=== PATIENT | female | born 1940 | race Two or more races ===

== ENCOUNTER 2023-06-09 15:35 | Inpatient (IN) | payer OTHER ==
[~2023-06-09] VITALS: Ht 162.6 cm; Wt 103.4 kg
[2023-06-09 16:00] VITALS: PULSE 55; RESP 15; O2SAT 96
[2023-06-09 16:28] LABS: Basophils # (auto) 0 10 ^3/uL (0-0.2); Basophils % (auto) 0.1 % (0.0-2.0); Eosinophils # (auto) 0 10 ^3/uL (0-0.8); Eosinophils % (auto) 0.2 % (0.0-7.0); Hematocrit 43.5 % (36.0-46.0); Hemoglobin 13.8 g/dL (12.2-16.2); Lymphocytes # (auto) 0.6 10 ^3/uL (0.4-5.4); Lymphocytes % (auto) 16.3 % (10.0-50.0); Mean Corpuscular Hgb Conc. 31.6 g/dL (32.0-36.0); Mean Corpuscular Volume 94.7 fL (80.0-100.0); Monocytes # (auto) 0.4 10 ^3/uL (0-1.3); Monocytes % (auto) 11.1 % (0.0-12.0); Neutrophils # (auto) 2.5 10 ^3/uL (1.6-8.6); Neutrophils % (auto) 72.3 % (37.0-80.0); Nucleated Red Blood Cells % 0.1 %; Red Blood Cells 4.59 10^6/uL (4.0-5.20); White Blood Cell 3.4 10^3/uL (4.4-10.8)
[2023-06-09] MEDS ORDERED: FUROSEMIDE 40 MG/4 ML VIAL IV ONE (16:30)
[2023-06-09 16:45] LABS: Alanine Aminotransferase 12 U/L (7-40); Albumin 3.4 g/dL (3.2-4.8); Alkaline Phosphatase 131 U/L (46-116); Anion Gap 5 (5-15); Aspartate Aminotransferase 44 U/L (13-40); BUN/Creatinine Ratio 9.3 (10.0-20.0); Blood Urea Nitrogen 13 mg/dL (9-23); Carbon Dioxide 31 mmol/L (20-30); Chloride 100 mmol/L (98-107); Glucose 148 mg/dL (74-106); Potassium 4.2 mmol/L (3.5-5.1); Sodium 136 mmol/L (136-145); Total Protein 7.1 g/dL (5.7-8.2)
[2023-06-09] MEDS ORDERED: AZITHROMYCIN 500MG/ 250ML 250 ML IV ONE (17:30)
[2023-06-09 18:50] LABS: Urine Bacteria NONE SEEN /hpf (None Seen); Urine Blood Negative /uL (Negative); Urine Clarity Clear (Clear); Urine Color Yellow (Yellow); Urine Hyaline Cast FEW /lpf (0 - 2); Urine Protein, UAD 1+ (Negative); Urine Specific Gravity 1.013 (1.001-1.035); Urine Urobilinogen Normal (Negative); Urine WBC 1 /hpf (0 - 5)
[2023-06-09 20:00] VITALS: PULSE 59; RESP 14; O2SAT 92
[2023-06-09] MEDS ORDERED: ALBUTEROL SULF 2.5 MG/0.5ML(0.5%) NEB SOLN NEB PRN (20:45)
[2023-06-09] MEDS ORDERED: DEXTROSE (50%) 50ML SYRG IV PRN (20:45)
[2023-06-09] MEDS ORDERED: NITROGLYCERIN 0.4 MG SL TAB SL PRN (20:45)
[2023-06-09] MEDS ORDERED: ACETAMINOPHEN 325 MG TAB PO PRN (20:45)
[2023-06-09] MEDS ORDERED: MORPHINE SULFATE INJ 2 MG/ml SYRG IV PRN (20:45)
[2023-06-09 21:13] LABS: COVID19 ANTIGEN SOFIA FIA POSITIVE (NEGATIVE)
[2023-06-09 21:45] LABS: Rapid Influenza A Negative (Negative); Rapid Influenza B Negative (Negative)
[2023-06-09] MEDS ORDERED: METOPROLOL TARTRATE 25 MG TAB PO SCH (22:00)
[2023-06-09] MEDS ORDERED: AMIODARONE HCL 200 MG TAB PO SCH (22:00)
[2023-06-09] MEDS: InsuLIN REG 1unit/0.01ml Soln (100units/ml) SC SCH (22:00)
[2023-06-09] MEDS ORDERED: ALBUTEROL SULF HFA 90MCG INH 200DOSE IN PRN (22:15)
[2023-06-09 22:22] VITALS: BP 111/84; PULSE 56; RESP 18; TEMP 98.6; O2SAT 96
[2023-06-09] MEDS: ATORVASTATIN 20 MG TAB PO SCH (22:27)
[2023-06-09] MEDS: ACCU-CHEK COMFORT CURVE STRIP VI SCH (22:29)
[2023-06-10] VITALS (11 sets, daily range): BP systolic 109–128; BP diastolic 62–84; PULSE 51–61; RESP 16–21; TEMP 97.3–98.4; O2SAT 90–96
[2023-06-10] MEDS ORDERED: REMDESIVIR PER PHARMACY 0 ML IV SCH (06:30)
[2023-06-10 06:57] LABS: Alanine Aminotransferase 13 U/L (7-40); Albumin 3.2 g/dL (3.2-4.8); Alkaline Phosphatase 120 U/L (46-116); Anion Gap 10 (5-15); Aspartate Aminotransferase 45 U/L (13-40); Bilirubin, Total 1.1 mg/dL (0.2-1.0); Blood Urea Nitrogen 10 mg/dL (9-23); Calcium 8.1 mg/dL (8.5-10.1); Carbon Dioxide 25 mmol/L (20-30); Chloride 100 mmol/L (98-107); Glucose 99 mg/dL (74-106); Potassium 3.5 mmol/L (3.5-5.1); Sodium 135 mmol/L (136-145)
[2023-06-10 06:58] LABS: Total Protein 6.8 g/dL (5.7-8.2)
[2023-06-10 07:00] LABS: Basophils # (auto) 0 10 ^3/uL (0-0.2); Basophils % (auto) 0.2 % (0.0-2.0); Eosinophils # (auto) 0 10 ^3/uL (0-0.8); Eosinophils % (auto) 0.1 % (0.0-7.0); Hemoglobin 14.3 g/dL (12.2-16.2); Lymphocytes # (auto) 0.6 10 ^3/uL (0.4-5.4); Lymphocytes % (auto) 15.4 % (10.0-50.0); Mean Corpuscular Hemoglobin 30.9 pg (28.0-32.0); Mean Corpuscular Hgb Conc. 32.6 g/dL (32.0-36.0); Mean Corpuscular Volume 94.9 fL (80.0-100.0); Monocytes # (auto) 0.5 10 ^3/uL (0-1.3); Monocytes % (auto) 11.5 % (0.0-12.0); Neutrophils % (auto) 72.8 % (37.0-80.0); Nucleated Red Blood Cells % 0.1 %; Red Blood Cells 4.64 10^6/uL (4.0-5.20); Red Cell Distribution Width 17.1 % (11.8-14.3); White Blood Cell 4.1 10^3/uL (4.4-10.8)
[2023-06-10] MEDS: InsuLIN REG 1unit/0.01ml Soln (100units/ml) SC SCH ×4 (07:00→22:49)
[2023-06-10 07:21] LABS: CRP High Sensitivity 4.92 mg/dL (<1.0)
[2023-06-10] MEDS: FUROSEMIDE 20 MG/2 ML VIAL IV SCH ×2 (07:28→17:21)
[2023-06-10] MEDS: cefTRIAXone 1GM/50ML D5W 50 ML IV SCH ×2 (07:30→10:31)
[2023-06-10] MEDS ORDERED: DEXTROSE (50%) 50ML SYRG IV PRN (07:30)
[2023-06-10] MEDS: ACCU-CHEK COMFORT CURVE STRIP VI SCH ×4 (07:31→22:48)
[2023-06-10 07:35] LABS: Magnesium 1.9 mg/dL (1.6-2.6)
[2023-06-10] MEDS ORDERED: ASPirin 81 mg TAB PO SCH (10:00)
[2023-06-10] MEDS ORDERED: ENOXAPARIN SOD 30 MG/0.3 ML SYRINGE SC SCH (10:00)
[2023-06-10] MEDS ORDERED: CLOPIDOGREL BISULFATE 75 MG TAB PO SCH (10:00)
[2023-06-10] MEDS ORDERED: LISINOPRIL 10 MG TAB PO SCH (10:00)
[2023-06-10] MEDS: DexAMETHasone SOD PHOS 10MG/1ML VIAL INJ IV SCH (10:30)
[2023-06-10] MEDS: CHOLECALCIFEROL (VITD3) 2,000 UNIT CAP/TAB PO SCH (10:30)
[2023-06-10] MEDS: ZINC SULFATE 220mg CAP or TAB PO SCH (10:31)
[2023-06-10] MEDS: ASCORBIC ACID 1,000 MG TAB PO SCH (10:31)
[2023-06-10] MEDS: ALBUTEROL SULF HFA 90MCG INH 200DOSE IN PRN (11:11)
[2023-06-10] MEDS ORDERED: CYANOCOBALAMIN 500 MCG TAB PO ONE (12:00)
[2023-06-10] MEDS ORDERED: REMDESIVIR 200 MG in NS 210ml LOADING DOSE ADULT IV ONE (12:00)
[2023-06-10] MEDS: AZITHROMYCIN 500MG/ 250ML 250 ML IV SCH (12:20)
[2023-06-10 18:52] LABS: Base Excess 5.6 mmol/L (-2.0-2.0)
[2023-06-10] MEDS: ATORVASTATIN 20 MG TAB PO SCH (22:48)
[2023-06-10] MEDS: ENOXAPARIN SOD 100 MG/1 ML SYRINGE SC SCH (22:49)
[2023-06-11] VITALS (8 sets, daily range): BP systolic 114–142; BP diastolic 67–85; PULSE 54–87; RESP 16–20; TEMP 96.9–98.6; O2SAT 89–93
[2023-06-11] MEDS: InsuLIN REG 1unit/0.01ml Soln (100units/ml) SC SCH ×4 (06:24→21:34)
[2023-06-11] MEDS: ACCU-CHEK COMFORT CURVE STRIP VI SCH ×4 (06:24→21:24)
[2023-06-11] MEDS: FUROSEMIDE 20 MG/2 ML VIAL IV SCH ×2 (06:26→18:37)
[2023-06-11 06:39] LABS: Basophils # (auto) 0 10 ^3/uL (0-0.2); Basophils % (auto) 0.2 % (0.0-2.0); Eosinophils # (auto) 0 10 ^3/uL (0-0.8); Hematocrit 44.9 % (36.0-46.0); Hemoglobin 14.7 g/dL (12.2-16.2); Lymphocytes # (auto) 0.5 10 ^3/uL (0.4-5.4); Lymphocytes % (auto) 18.8 % (10.0-50.0); Mean Corpuscular Hemoglobin 30.6 pg (28.0-32.0); Mean Corpuscular Hgb Conc. 32.6 g/dL (32.0-36.0); Mean Corpuscular Volume 93.8 fL (80.0-100.0); Monocytes # (auto) 0.4 10 ^3/uL (0-1.3); Neutrophils # (auto) 1.9 10 ^3/uL (1.6-8.6); Nucleated Red Blood Cells % 0.2 %; Red Blood Cells 4.79 10^6/uL (4.0-5.20); Red Cell Distribution Width 16.8 % (11.8-14.3); White Blood Cell 2.9 10^3/uL (4.4-10.8)
[2023-06-11 06:53] LABS: Albumin 3.3 g/dL (3.2-4.8); Alkaline Phosphatase 124 U/L (46-116); Anion Gap 7 (5-15); Aspartate Aminotransferase 43 U/L (13-40); BUN/Creatinine Ratio 14.3 (10.0-20.0); Bilirubin, Total 1.2 mg/dL (0.2-1.0); Blood Urea Nitrogen 15 mg/dL (9-23); Calcium 8.3 mg/dL (8.7-10.4); Carbon Dioxide 29 mmol/L (20-30); Chloride 99 mmol/L (98-107); Glucose 128 mg/dL (74-106); Potassium 3.5 mmol/L (3.5-5.1); Sodium 135 mmol/L (136-145); Total Protein 6.9 g/dL (5.7-8.2)
[2023-06-11 06:56] LABS: Alanine Aminotransferase 9 U/L (7-40)
[2023-06-11] MEDS ORDERED: ERGOCALCIFEROL 50,000 UNIT(1.25MG) CAP PO SCH (07:30)
[2023-06-11] MEDS: CLOPIDOGREL BISULFATE 75 MG TAB PO SCH (09:23)
[2023-06-11] MEDS: ZINC SULFATE 220mg CAP or TAB PO SCH (09:23)
[2023-06-11] MEDS: DexAMETHasone SOD PHOS 10MG/1ML VIAL INJ IV SCH (09:24)
[2023-06-11] MEDS: SACUBITRIL-VALSARTAN 24mg/26mg TAB PO SCH ×2 (09:24→21:25)
[2023-06-11] MEDS: ASCORBIC ACID 1,000 MG TAB PO SCH (09:24)
[2023-06-11] MEDS: CHOLECALCIFEROL (VITD3) 2,000 UNIT CAP/TAB PO SCH (09:24)
[2023-06-11] MEDS: cefTRIAXone 1GM/50ML D5W 50 ML IV SCH (09:24)
[2023-06-11] MEDS: CYANOCOBALAMIN 500 MCG TAB PO SCH (09:35)
[2023-06-11] MEDS: ENOXAPARIN SOD 100 MG/1 ML SYRINGE SC SCH ×2 (09:37→21:25)
[2023-06-11] MEDS: AZITHROMYCIN 500MG/ 250ML 250 ML IV SCH (10:00)
[2023-06-11] MEDS ORDERED: CYANOCOBALAMIN 500 MCG TAB PO SCH (10:00)
[2023-06-11] MEDS: ALBUTEROL SULF HFA 90MCG INH 200DOSE IN PRN (13:45)
[2023-06-11] MEDS: REMDESIVIR 100mg 100 MG in SODIUM CHL 0.9% 230 ML IV SCH (16:13)
[2023-06-11] MEDS: ATORVASTATIN 20 MG TAB PO SCH (21:24)
[2023-06-12] VITALS (9 sets, daily range): BP systolic 104–131; BP diastolic 64–82; PULSE 50–57; RESP 15–20; TEMP 96.5–97.5; O2SAT 90–96
[2023-06-12] MEDS: FUROSEMIDE 20 MG/2 ML VIAL IV SCH ×2 (06:50→19:00)
[2023-06-12] MEDS: ACCU-CHEK COMFORT CURVE STRIP VI SCH ×4 (06:50→21:57)
[2023-06-12] MEDS: EMPAGLIFLOZIN 10 MG TAB PO SCH (06:50)
[2023-06-12] MEDS: InsuLIN REG 1unit/0.01ml Soln (100units/ml) SC SCH ×4 (06:51→22:24)
[2023-06-12 06:58] LABS: Basophils # (auto) 0 10 ^3/uL (0-0.2); Basophils % (auto) 0.1 % (0.0-2.0); Eosinophils # (auto) 0 10 ^3/uL (0-0.8); Hematocrit 47.8 % (36.0-46.0); Hemoglobin 15.8 g/dL (12.2-16.2); Lymphocytes # (auto) 0.6 10 ^3/uL (0.4-5.4); Lymphocytes % (auto) 7.9 % (10.0-50.0); Mean Corpuscular Hemoglobin 30.8 pg (28.0-32.0); Mean Corpuscular Volume 93.3 fL (80.0-100.0); Monocytes # (auto) 0.8 10 ^3/uL (0-1.3); Monocytes % (auto) 10.3 % (0.0-12.0); Neutrophils # (auto) 6.5 10 ^3/uL (1.6-8.6); Neutrophils % (auto) 81.7 % (37.0-80.0); Nucleated Red Blood Cells % 0.1 %; Red Blood Cells 5.12 10^6/uL (4.0-5.20); Red Cell Distribution Width 16.9 % (11.8-14.3)
[2023-06-12 07:21] LABS: Alanine Aminotransferase 13 U/L (7-40); Albumin 3.2 g/dL (3.2-4.8); Alkaline Phosphatase 124 U/L (46-116); Anion Gap 11 (5-15); Aspartate Aminotransferase 42 U/L (13-40); BUN/Creatinine Ratio 19.6 (10.0-20.0); Blood Urea Nitrogen 21 mg/dL (9-23); Calcium 8.7 mg/dL (8.5-10.1); Carbon Dioxide 29 mmol/L (20-30); Chloride 97 mmol/L (98-107); Glucose 142 mg/dL (74-106); Potassium 3.3 mmol/L (3.5-5.1); Sodium 137 mmol/L (136-145); Total Protein 6.8 g/dL (5.7-8.2)
[2023-06-12] MEDS: cefTRIAXone 1GM/50ML D5W 50 ML IV SCH (10:19)
[2023-06-12] MEDS: DexAMETHasone SOD PHOS 10MG/1ML VIAL INJ IV SCH (10:19)
[2023-06-12] MEDS: ENOXAPARIN SOD 100 MG/1 ML SYRINGE SC SCH ×2 (10:20→21:57)
[2023-06-12] MEDS: ASCORBIC ACID 1,000 MG TAB PO SCH (10:21)
[2023-06-12] MEDS: ZINC SULFATE 220mg CAP or TAB PO SCH (10:21)
[2023-06-12] MEDS: CYANOCOBALAMIN 500 MCG TAB PO SCH (10:21)
[2023-06-12] MEDS: CLOPIDOGREL BISULFATE 75 MG TAB PO SCH (10:21)
[2023-06-12] MEDS: CHOLECALCIFEROL (VITD3) 2,000 UNIT CAP/TAB PO SCH (10:21)
[2023-06-12] MEDS: SACUBITRIL-VALSARTAN 24mg/26mg TAB PO SCH ×2 (10:21→21:56)
[2023-06-12 12:18] LABS: Base Excess 5.2 mmol/L (-2.0-2.0)
[2023-06-12] MEDS: AZITHROMYCIN 500MG/ 250ML 250 ML IV SCH (12:49)
[2023-06-12] MEDS ORDERED: POTASSIUM EFFERVESENT TAB 25 MEQ PO ONE (13:30)
[2023-06-12] MEDS: REMDESIVIR 100mg 100 MG in SODIUM CHL 0.9% 230 ML IV SCH (16:24)
[2023-06-12] MEDS: ALBUTEROL SULF HFA 90MCG INH 200DOSE IN PRN (17:28)
[2023-06-12] MEDS: ATORVASTATIN 20 MG TAB PO SCH (21:57)
[2023-06-13] VITALS (8 sets, daily range): BP systolic 113–128; BP diastolic 55–77; PULSE 56–118; RESP 17–20; TEMP 96.7–98.6; O2SAT 91–94
[2023-06-13] MEDS: FUROSEMIDE 20 MG/2 ML VIAL IV SCH ×2 (06:00→18:06)
[2023-06-13 06:16] LABS: Basophils # (auto) 0 10 ^3/uL (0-0.2); Basophils % (auto) 0.4 % (0.0-2.0); Eosinophils # (auto) 0 10 ^3/uL (0-0.8); Eosinophils % (auto) 0.1 % (0.0-7.0); Hematocrit 51.2 % (36.0-46.0); Hemoglobin 16.7 g/dL (12.2-16.2); Lymphocytes # (auto) 0.8 10 ^3/uL (0.4-5.4); Lymphocytes % (auto) 9.5 % (10.0-50.0); Mean Corpuscular Hemoglobin 30.4 pg (28.0-32.0); Mean Corpuscular Hgb Conc. 32.6 g/dL (32.0-36.0); Mean Corpuscular Volume 93.3 fL (80.0-100.0); Monocytes # (auto) 1.1 10 ^3/uL (0-1.3); Monocytes % (auto) 12.7 % (0.0-12.0); Neutrophils # (auto) 6.6 10 ^3/uL (1.6-8.6); Neutrophils % (auto) 77.3 % (37.0-80.0); Nucleated Red Blood Cells % 0.5 %; Red Blood Cells 5.49 10^6/uL (4.0-5.20); Red Cell Distribution Width 17.2 % (11.8-14.3); White Blood Cell 8.5 10^3/uL (4.4-10.8)
[2023-06-13] MEDS: ACCU-CHEK COMFORT CURVE STRIP VI SCH ×4 (06:31→21:28)
[2023-06-13] MEDS: EMPAGLIFLOZIN 10 MG TAB PO SCH (06:31)
[2023-06-13] MEDS: InsuLIN REG 1unit/0.01ml Soln (100units/ml) SC SCH ×4 (06:33→23:10)
[2023-06-13 07:12] LABS: Alanine Aminotransferase 16 U/L (7-40); Albumin 3.1 g/dL (3.2-4.8); Alkaline Phosphatase 127 U/L (46-116); Anion Gap 9 (5-15); Aspartate Aminotransferase 49 U/L (13-40); BUN/Creatinine Ratio 15.2 (10.0-20.0); Blood Urea Nitrogen 17 mg/dL (9-23); Calcium 8.3 mg/dL (8.7-10.4); Carbon Dioxide 28 mmol/L (20-30); Chloride 99 mmol/L (98-107); Glucose 167 mg/dL (74-106); Potassium 3.7 mmol/L (3.5-5.1); Sodium 136 mmol/L (136-145); Total Protein 6.9 g/dL (5.7-8.2)
[2023-06-13] MEDS: ALBUTEROL SULF HFA 90MCG INH 200DOSE IN PRN (07:18)
[2023-06-13] MEDS: cefTRIAXone 1GM/50ML D5W 50 ML IV SCH (09:15)
[2023-06-13] MEDS: DexAMETHasone SOD PHOS 10MG/1ML VIAL INJ IV SCH (10:53)
[2023-06-13] MEDS: AZITHROMYCIN 500MG/ 250ML 250 ML IV SCH (10:53)
[2023-06-13] MEDS: ENOXAPARIN SOD 100 MG/1 ML SYRINGE SC SCH ×2 (10:54→23:17)
[2023-06-13] MEDS: CHOLECALCIFEROL (VITD3) 2,000 UNIT CAP/TAB PO SCH (10:54)
[2023-06-13] MEDS: CLOPIDOGREL BISULFATE 75 MG TAB PO SCH (10:54)
[2023-06-13] MEDS: ASCORBIC ACID 1,000 MG TAB PO SCH (10:54)
[2023-06-13] MEDS: POTASSIUM EFFERVESENT TAB 25 MEQ PO SCH (11:37)
[2023-06-13] MEDS: ZINC SULFATE 220mg CAP or TAB PO SCH (11:38)
[2023-06-13] MEDS: CYANOCOBALAMIN 500 MCG TAB PO SCH (11:38)
[2023-06-13] MEDS: SACUBITRIL-VALSARTAN 24mg/26mg TAB PO SCH ×2 (11:38→23:12)
[2023-06-13] MEDS: REMDESIVIR 100mg 100 MG in SODIUM CHL 0.9% 230 ML IV SCH (15:09)
[2023-06-13] MEDS: ATORVASTATIN 20 MG TAB PO SCH (23:12)
[2023-06-13] MEDS: HYDROcodone-ACET 5/325MG TAB PO PRN (23:13)
[2023-06-14] VITALS (11 sets, daily range): BP systolic 111–132; BP diastolic 67–86; PULSE 53–109; RESP 16–22; TEMP 97.9–98.7; O2SAT 88–96
[2023-06-14 06:24] LABS: Basophils # (auto) 0 10 ^3/uL (0-0.2); Basophils % (auto) 0.2 % (0.0-2.0); Eosinophils # (auto) 0 10 ^3/uL (0-0.8); Eosinophils % (auto) 0.1 % (0.0-7.0); Hematocrit 49.1 % (36.0-46.0); Hemoglobin 16.3 g/dL (12.2-16.2); Lymphocytes # (auto) 0.6 10 ^3/uL (0.4-5.4); Lymphocytes % (auto) 8.1 % (10.0-50.0); Mean Corpuscular Hemoglobin 30.9 pg (28.0-32.0); Mean Corpuscular Hgb Conc. 33.1 g/dL (32.0-36.0); Mean Corpuscular Volume 93.2 fL (80.0-100.0); Monocytes # (auto) 0.9 10 ^3/uL (0-1.3); Monocytes % (auto) 11.9 % (0.0-12.0); Neutrophils # (auto) 5.8 10 ^3/uL (1.6-8.6); Neutrophils % (auto) 79.7 % (37.0-80.0); Red Blood Cells 5.28 10^6/uL (4.0-5.20); Red Cell Distribution Width 16.7 % (11.8-14.3); White Blood Cell 7.3 10^3/uL (4.4-10.8)
[2023-06-14 06:33] LABS: Alanine Aminotransferase 23 U/L (7-40); Alkaline Phosphatase 122 U/L (46-116); Anion Gap 7 (5-15); Aspartate Aminotransferase 42 U/L (13-40); BUN/Creatinine Ratio 16.2 (10.0-20.0); Bilirubin, Total 0.9 mg/dL (0.2-1.0); Blood Urea Nitrogen 19 mg/dL (9-23); Calcium 8.5 mg/dL (8.5-10.1); Carbon Dioxide 33 mmol/L (20-30); Chloride 99 mmol/L (98-107); Glucose 168 mg/dL (74-106); Potassium 3.6 mmol/L (3.5-5.1); Sodium 139 mmol/L (136-145); Total Protein 6.6 g/dL (5.7-8.2)
[2023-06-14 06:41] LABS: CRP High Sensitivity 1.13 mg/dL (<1.0)
[2023-06-14] MEDS: EMPAGLIFLOZIN 10 MG TAB PO SCH (07:05)
[2023-06-14] MEDS: FUROSEMIDE 20 MG/2 ML VIAL IV SCH ×2 (07:05→18:41)
[2023-06-14] MEDS: ACCU-CHEK COMFORT CURVE STRIP VI SCH ×4 (07:07→21:44)
[2023-06-14] MEDS: InsuLIN REG 1unit/0.01ml Soln (100units/ml) SC SCH ×4 (07:07→22:00)
[2023-06-14] MEDS: cefTRIAXone 1GM/50ML D5W 50 ML IV SCH (09:17)
[2023-06-14] MEDS ORDERED: ALBUTEROL SULF HFA 90MCG INH 200DOSE IN SCH (09:30)
[2023-06-14] MEDS ORDERED: BUDESONIDE (INHALATION) 0.5 MG/2 ML NEB NEB SCH (10:00)
[2023-06-14] MEDS: AZITHROMYCIN 500MG/ 250ML 250 ML IV SCH (11:01)
[2023-06-14] MEDS: POTASSIUM EFFERVESENT TAB 25 MEQ PO SCH (11:01)
[2023-06-14] MEDS: SACUBITRIL-VALSARTAN 24mg/26mg TAB PO SCH ×2 (11:02→21:43)
[2023-06-14] MEDS: ASCORBIC ACID 1,000 MG TAB PO SCH (11:02)
[2023-06-14] MEDS: CHOLECALCIFEROL (VITD3) 2,000 UNIT CAP/TAB PO SCH (11:02)
[2023-06-14] MEDS: CLOPIDOGREL BISULFATE 75 MG TAB PO SCH (11:02)
[2023-06-14] MEDS: ZINC SULFATE 220mg CAP or TAB PO SCH (11:03)
[2023-06-14] MEDS: ENOXAPARIN SOD 100 MG/1 ML SYRINGE SC SCH (11:03)
[2023-06-14] MEDS: DexAMETHasone SOD PHOS 10MG/1ML VIAL INJ IV SCH (11:03)
[2023-06-14] MEDS: CYANOCOBALAMIN 500 MCG TAB PO SCH (11:03)
[2023-06-14] MEDS: ALBUTEROL SULF 2.5 MG/0.5ML(0.5%) NEB SOLN NEB SCH ×3 (13:02→21:44)
[2023-06-14] MEDS: BUDESONIDE (INHALATION) 0.5 MG/2 ML NEB NEB SCH ×2 (13:02→17:57)
[2023-06-14 13:30] LABS: COVID19 ANTIGEN SOFIA FIA POSITIVE (NEGATIVE)
[2023-06-14] MEDS: REMDESIVIR 100mg 100 MG in SODIUM CHL 0.9% 230 ML IV SCH (15:20)
[2023-06-14] MEDS: FAMOTIDINE 20 MG TAB PO SCH (15:20)
[2023-06-14] MEDS: ATORVASTATIN 20 MG TAB PO SCH (21:43)
[2023-06-14] MEDS: HYDROcodone-ACET 5/325MG TAB PO PRN (21:43)
[2023-06-15] VITALS (13 sets, daily range): BP systolic 99–130; BP diastolic 62–77; PULSE 54–80; RESP 16–20; TEMP 97–98.1; O2SAT 89–98
[2023-06-15] MEDS: ACCU-CHEK COMFORT CURVE STRIP VI SCH ×4 (06:08→21:40)
[2023-06-15] MEDS: InsuLIN REG 1unit/0.01ml Soln (100units/ml) SC SCH ×4 (06:16→21:41)
[2023-06-15] MEDS: BUDESONIDE (INHALATION) 0.5 MG/2 ML NEB NEB SCH ×2 (06:16→19:39)
[2023-06-15] MEDS: ALBUTEROL SULF 2.5 MG/0.5ML(0.5%) NEB SOLN NEB SCH ×3 (06:16→19:39)
[2023-06-15] MEDS: FUROSEMIDE 20 MG/2 ML VIAL IV SCH ×2 (06:17→17:50)
[2023-06-15] MEDS: EMPAGLIFLOZIN 10 MG TAB PO SCH (06:17)
[2023-06-15 06:52] LABS: Basophils # (auto) 0 10 ^3/uL (0-0.2); Eosinophils # (auto) 0 10 ^3/uL (0-0.8); Lymphocytes # (auto) 0.6 10 ^3/uL (0.4-5.4); Lymphocytes % (auto) 6.6 % (10.0-50.0)
[2023-06-15 06:55] LABS: Hematocrit 52.4 % (36.0-46.0); Hemoglobin 17.4 g/dL (12.2-16.2); Mean Corpuscular Hemoglobin 31.1 pg (28.0-32.0); Mean Corpuscular Hgb Conc. 33.3 g/dL (32.0-36.0); Mean Corpuscular Volume 93.3 fL (80.0-100.0); Monocytes # (auto) 0.9 10 ^3/uL (0-1.3); Monocytes % (auto) 10.1 % (0.0-12.0); Neutrophils # (auto) 7.7 10 ^3/uL (1.6-8.6); Neutrophils % (auto) 83.3 % (37.0-80.0); Nucleated Red Blood Cells % 0.1 %; Red Blood Cells 5.62 10^6/uL (4.0-5.20); Red Cell Distribution Width 16.9 % (11.8-14.3); White Blood Cell 9.3 10^3/uL (4.4-10.8)
[2023-06-15 07:16] LABS: Alanine Aminotransferase 24 U/L (7-40); Albumin 3.2 g/dL (3.2-4.8); Alkaline Phosphatase 129 U/L (46-116); Anion Gap 6 (5-15); Aspartate Aminotransferase 38 U/L (13-40); BUN/Creatinine Ratio 16.5 (10.0-20.0); Blood Urea Nitrogen 19 mg/dL (9-23); Calcium 8.4 mg/dL (8.7-10.4); Carbon Dioxide 31 mmol/L (20-30); Chloride 99 mmol/L (98-107); Glucose 210 mg/dL (74-106); Potassium 3.5 mmol/L (3.5-5.1); Sodium 136 mmol/L (136-145)
[2023-06-15] MEDS: SACUBITRIL-VALSARTAN 24mg/26mg TAB PO SCH ×2 (10:00→22:40)
[2023-06-15] MEDS ORDERED: ENOXAPARIN SOD 40 MG/0.4 ML SYRINGE SC SCH (10:00)
[2023-06-15] MEDS: DexAMETHasone SOD PHOS 10MG/1ML VIAL INJ IV SCH (10:30)
[2023-06-15] MEDS: POTASSIUM EFFERVESENT TAB 25 MEQ PO SCH (10:31)
[2023-06-15] MEDS: FAMOTIDINE 20 MG TAB PO SCH (10:32)
[2023-06-15] MEDS: CLOPIDOGREL BISULFATE 75 MG TAB PO SCH (10:33)
[2023-06-15] MEDS: CYANOCOBALAMIN 500 MCG TAB PO SCH (10:33)
[2023-06-15] MEDS: CHOLECALCIFEROL (VITD3) 2,000 UNIT CAP/TAB PO SCH (10:34)
[2023-06-15] MEDS: ZINC SULFATE 220mg CAP or TAB PO SCH (10:34)
[2023-06-15] MEDS: ASCORBIC ACID 1,000 MG TAB PO SCH (10:34)
[2023-06-15] MEDS: cefTRIAXone 1GM/50ML D5W 50 ML IV SCH (10:35)
[2023-06-15] MEDS: AZITHROMYCIN 500MG/ 250ML 250 ML IV SCH (11:53)
[2023-06-15 13:34] LABS: Base Excess 4.1 mmol/L (-2.0-2.0)
[2023-06-15] MEDS: ATORVASTATIN 20 MG TAB PO SCH (21:31)
[2023-06-15] MEDS: HYDROcodone-ACET 5/325MG TAB PO PRN (21:32)
== END 2023-06-16 00:05 | disposition short-term general hospital (02) | DRG 177 ==
LOC: EDBD 15:35 → ER 15:35 → TELE 20:50 → TELE-CENTR 06-10 04:58
PROVIDERS: ADMIT Internal Medicine; ATTEND Internal Medicine
PROC: XW033E5 Introduction of Remdesivir Anti-infective into Peripheral Vein, Percutaneous Approach, New Technology Group 5 (ICD-10-PCS; principal; 2023-06-10)
DX: U07.1 COVID-19 (principal); I50.43 Acute on chronic combined systolic (congestive) and diastolic (congestive) heart failure; J12.82 Pneumonia due to coronavirus disease 2019; J96.01 Acute respiratory failure with hypoxia; J96.21 Acute and chronic respiratory failure with hypoxia; N17.0 Acute kidney failure with tubular necrosis; I13.0 Hypertensive heart and chronic kidney disease with heart failure and stage 1 through stage 4 chronic kidney disease, or unspecified chronic kidney disease; J44.0 Chronic obstructive pulmonary disease with (acute) lower respiratory infection; D68.59 Other primary thrombophilia; E78.5 Hyperlipidemia, unspecified; I25.10 Atherosclerotic heart disease of native coronary artery without angina pectoris; E11.22 Type 2 diabetes mellitus with diabetic chronic kidney disease; E66.01 Morbid (severe) obesity due to excess calories; I07.1 Rheumatic tricuspid insufficiency; I27.20 Pulmonary hypertension, unspecified; J84.10 Pulmonary fibrosis, unspecified; R74.01 Elevation of levels of liver transaminase levels; N18.30 Chronic kidney disease, stage 3 unspecified; Z96.653 Presence of artificial knee joint, bilateral; Z68.39 Body mass index [BMI] 39.0-39.9, adult; Z79.4 Long term (current) use of insulin; Z80.0 Family history of malignant neoplasm of digestive organs; Z82.49 Family history of ischemic heart disease and other diseases of the circulatory system; Z98.61 Coronary angioplasty status
CPT/HCPCS: 36415; 36600; 71045; 71250; 76775; 80053; 81001; 82306; 82607; 82728; 82805; 82962; 83036; 83605; 83615; 83735; 83880; 83970; 84443; 84484; 85025; 85379; 86141; 87040; 87426; 87804; 93005; 93306; 93970; 94640; 99291; G0378; J0696; J1100; J1815